=== PATIENT | female | born 1970 | race Caucasian/White ===

== ENCOUNTER 2020-07-27 06:04 | Inpatient (IN) | payer OTHER ==
[2020-07-27 09:12] LABS: BASO % 0.3 % (0-2.0); EOS % 0.1 % (0-4.5); HEMATOCRIT 42.6 % (32.4-45.2); HEMOGLOBIN 14.3 GM/dL (10.7-15.3); LYMPH % 27.7 % (8-40); MCH 29.9 pg (25.7-33.7); MCHC 33.6 g/dl (32.0-36.0); MEAN CELL VOLUME 89.2 fl (80-96); MEAN PLT VOLUME 8.9 fl (7.5-11.1); MONO % 10.6 % (3.8-10.2); NEUT % 61.3 % (42.8-82.8); PLATELET COUNT 150 K/MM3 (134-434); RBC 4.78 M/mm3 (3.60-5.2); RDW 12.9 % (11.6-15.6); WHITE BLOOD COUNT 3.5 K/mm3 (4.0-10.0)
[2020-07-27] MEDS ORDERED: DEXAMETHASONE SOD PHOSPHATE 10 MG/1 ML VIAL IVPUSH ONE (09:17)
[2020-07-27 09:20] LABS: INR 1.09 (0.83-1.09); PROTHROMBIN TIME (PATIENT) 13.1 SEC (9.7-13.0)
[2020-07-27 09:23] LABS: ACTIVATED PTT 30.1 SECONDS (25.2-36.5)
[2020-07-27 09:26] LABS: CHLORIDE 104 mmol/L (98-107); POTASSIUM 3.7 mmol/L (3.5-5.1); SODIUM 138 mmol/L (136-145)
[2020-07-27 09:28] LABS: ALBUMIN 3.8 g/dl (3.4-5.0); ANION GAP 6 MMOL/L (8-16); CALCIUM 8.7 mg/dL (8.5-10.1); CO2 28 mmol/L (21-32); GLUCOSE,RANDOM 147 mg/dL (74-106)
[2020-07-27 09:31] LABS: BILIRUBIN,DIRECT 0.2 mg/dL (0.0-0.2); SGOT/AST 45 U/L (15-37); SGPT/ALT 55 U/L (13-61)
[2020-07-27 09:32] LABS: CREATININE 0.6 mg/dL (0.55-1.3)
[2020-07-27 09:33] LABS: BILIRUBIN,TOTAL 0.7 mg/dL (0.2-1); TOT PROT 7.8 g/dl (6.4-8.2)
[2020-07-27 09:34] LABS: ALK PHOS 81 U/L (45-117)
[2020-07-27 09:36] LABS: LDH 297 U/L (84-246)
[2020-07-27] MEDS ORDERED: DEXAMETHASONE SOD PHOSPHATE 10 MG/1 ML VIAL ONE (10:15)
[2020-07-27] MEDS: ENOXAPARIN NA (PORCINE) 40 MG/0.4 ML DISP.SYRIN SQ SCH (12:45)
[2020-07-27] MEDS ORDERED: ENOXAPARIN NA (PORCINE) 40 MG/0.4 ML DISP.SYRIN SQ ONE (12:51)
[2020-07-27] MEDS: LACTATED RINGERS SOLUTION 1,000 ML/1,000 ML INFUS.BAG IV SCH (13:05)
[2020-07-27] MEDS ORDERED: PIPERACILLIN/TAZOB 3.375 GM 3.375 GM/50 ML BAG IVPB ONE (15:03)
[2020-07-27] MEDS: PIPERACILLIN/TAZOB 3.375 GM 3.375 GM in DEXTROSE 5%-WATER - 50 ML IVPB SCH ×2 (15:11→19:05)
[2020-07-27 18:26] LABS: PH,URINE 6.5 (5.0-8.0); URINE APPEARANCE CLEAR; URINE BILIRUBIN NEGATIVE (NEGATIVE); URINE COLOR DK YELLOW; URINE GLUCOSE (UA) NEGATIVE (NEGATIVE); URINE KETONE TRACE (NEGATIVE); URINE LEUK ESTERASE NEGATIVE (NEGATIVE); URINE NITRITE NEGATIVE (NEGATIVE); URINE PROTEIN NEGATIVE (NEGATIVE)
[2020-07-27] MEDS ORDERED: DEXTROSE 5%-WATER - 50 ML IVPB ONE (21:15)
[2020-07-27] MEDS ORDERED: PIPERACILLIN/TAZOBACTAM 3.375 GM VIAL IVPB ONE (21:15)
[2020-07-27] MEDS: ASCORBIC ACID 500 MG TABLET (FP) PO SCH (21:20)
[2020-07-27] MEDS: FAMOTIDINE 20 MG/50 ML IVPB 20 MG/50 ML MG IVPB SCH (21:21)
[2020-07-27] MEDS ORDERED: ZINC SULFATE 220 MG CAPSULE (FP) PO SCH (22:00)
[2020-07-28] MEDS ORDERED: ACETAMINOPHEN 1000 MG/100 ML VIAL (NON FORMULARY) IVPB PRN (00:29)
[2020-07-28] MEDS ORDERED: PIPERACILLIN/TAZOBACTAM 3.375 GM VIAL IVPB ONE ×2 (00:44→09:03)
[2020-07-28] MEDS ORDERED: DEXTROSE 5%-WATER - 50 ML IVPB ONE ×2 (00:44→09:03)
[2020-07-28] MEDS: CHOLECALCIFEROL (VIT D3) 1,000 UNIT (25 MCG) TABLET PO SCH ×2 (00:47→10:32)
[2020-07-28] MEDS: LACTATED RINGERS SOLUTION 1,000 ML/1,000 ML INFUS.BAG IV SCH ×2 (00:58→13:02)
[2020-07-28] MEDS: PIPERACILLIN/TAZOB 3.375 GM 3.375 GM in DEXTROSE 5%-WATER - 50 ML IVPB SCH ×2 (01:03→10:35)
[2020-07-28] MEDS ORDERED: PT OWN MED DRAWER 7, Y5N ONE (07:06)
[2020-07-28 08:53] LABS: BASO % 0.2 % (0-2.0); EOS % 0.5 % (0-4.5); HEMATOCRIT 40.6 % (32.4-45.2); HEMOGLOBIN 13.7 GM/dL (10.7-15.3); LYMPH % 35.5 % (8-40); MCH 30.1 pg (25.7-33.7); MCHC 33.7 g/dl (32.0-36.0); MEAN CELL VOLUME 89.3 fl (80-96); MEAN PLT VOLUME 8.4 fl (7.5-11.1); MONO % 12.4 % (3.8-10.2); NEUT % 51.4 % (42.8-82.8); PLATELET COUNT 162 K/MM3 (134-434); RBC 4.54 M/mm3 (3.60-5.2); RDW 12.7 % (11.6-15.6); WHITE BLOOD COUNT 3.4 K/mm3 (4.0-10.0)
[2020-07-28 08:58] LABS: INR 1.08 (0.83-1.09); PROTHROMBIN TIME (PATIENT) 13.2 SEC (9.7-13.0)
[2020-07-28 09:00] LABS: ACTIVATED PTT 29.7 SECONDS (25.2-36.5)
[2020-07-28 09:15] LABS: POTASSIUM 3.4 mmol/L (3.5-5.1)
[2020-07-28 09:19] LABS: CALCIUM 8.4 mg/dL (8.5-10.1)
[2020-07-28 09:20] LABS: ALBUMIN 3.3 g/dl (3.4-5.0); BLOOD UREA NITROGEN 7.6 mg/dL (7-18)
[2020-07-28 09:23] LABS: CREATININE 0.5 mg/dL (0.55-1.3); PHOSPHOROUS 3.4 mg/dL (2.5-4.9)
[2020-07-28 09:24] LABS: BILIRUBIN,TOTAL 0.8 mg/dL (0.2-1); TOT PROT 7.1 g/dl (6.4-8.2)
[2020-07-28] MEDS ORDERED: POTASSIUM CHLORIDE TABS 20 MEQ TABLET.ER (FP) PO ONE (09:30)
[2020-07-28] MEDS ORDERED: DEXAMETHASONE SOD PHOSPHATE 4 MG/1 ML VIAL IVPUSH SCH (10:00)
[2020-07-28] MEDS: ASCORBIC ACID 500 MG TABLET (FP) PO SCH ×2 (10:32→21:47)
[2020-07-28] MEDS: ZINC SULFATE 220 MG CAPSULE (FP) PO SCH (10:32)
[2020-07-28] MEDS: FAMOTIDINE 20 MG/50 ML IVPB 20 MG/50 ML MG IVPB SCH ×2 (10:36→21:47)
[2020-07-28] MEDS: ENOXAPARIN NA (PORCINE) 40 MG/0.4 ML DISP.SYRIN SQ SCH (10:36)
[2020-07-28] MEDS ORDERED: REMDESIVIR 200 MG in SODIUM CHLORIDE 210 ML IVPB ONE (17:00)
[2020-07-28] MEDS: DEXAMETHASONE 4 MG TABLET (FP) PO SCH (17:16)
[2020-07-28] MEDS: INSULIN SLIDING SCALE (NOVOLOG) 1 VIAL SQ SCH ×2 (17:33→21:53)
[2020-07-29] MEDS: INSULIN SLIDING SCALE (NOVOLOG) 1 VIAL SQ SCH ×4 (06:21→21:27)
[2020-07-29 07:58] LABS: BASO % 0.2 % (0-2.0); EOS % 0.6 % (0-4.5); HEMATOCRIT 39.9 % (32.4-45.2); HEMOGLOBIN 13.4 GM/dL (10.7-15.3); LYMPH % 37.2 % (8-40); MCH 30.1 pg (25.7-33.7); MCHC 33.5 g/dl (32.0-36.0); MEAN CELL VOLUME 89.8 fl (80-96); MEAN PLT VOLUME 8.2 fl (7.5-11.1); PLATELET COUNT 185 K/MM3 (134-434); RBC 4.44 M/mm3 (3.60-5.2); RDW 12.6 % (11.6-15.6)
[2020-07-29 08:10] LABS: POTASSIUM 3.4 mmol/L (3.5-5.1)
[2020-07-29 08:12] LABS: CALCIUM 8.4 mg/dL (8.5-10.1)
[2020-07-29 08:13] LABS: ALBUMIN 3.4 g/dl (3.4-5.0); BLOOD UREA NITROGEN 11.5 mg/dL (7-18)
[2020-07-29 08:16] LABS: CREATININE 0.6 mg/dL (0.55-1.3); PHOSPHOROUS 3.1 mg/dL (2.5-4.9)
[2020-07-29 08:17] LABS: BILIRUBIN,TOTAL 0.3 mg/dL (0.2-1)
[2020-07-29 08:18] LABS: TOT PROT 7.2 g/dl (6.4-8.2)
[2020-07-29 09:39] LABS: ERYTHROCYTE SEDIMENTATION RATE 74 mm/hr (0-30)
[2020-07-29] MEDS: VANCOMYCIN 1,250 MG in DEXTROSE 5%-WATER - 250 ML IVPB SCH ×2 (10:43→21:19)
[2020-07-29] MEDS: ZINC SULFATE 220 MG CAPSULE (FP) PO SCH (10:44)
[2020-07-29] MEDS: ASCORBIC ACID 500 MG TABLET (FP) PO SCH ×2 (10:44→21:17)
[2020-07-29] MEDS: CHOLECALCIFEROL (VIT D3) 1,000 UNIT (25 MCG) TABLET PO SCH (10:44)
[2020-07-29] MEDS: ENOXAPARIN NA (PORCINE) 40 MG/0.4 ML DISP.SYRIN SQ SCH (10:45)
[2020-07-29] MEDS: DEXAMETHASONE 4 MG TABLET (FP) PO SCH (10:45)
[2020-07-29] MEDS: FAMOTIDINE 20 MG/50 ML IVPB 20 MG/50 ML MG IVPB SCH ×2 (10:45→21:17)
[2020-07-29] MEDS: RIFAMPIN 300 MG CAPSULE PO SCH (10:46)
[2020-07-29] MEDS: REMDESIVIR 100 MG in SODIUM CHLORIDE 230 ML IVPB SCH (16:48)
[2020-07-29] MEDS ORDERED: PT OWN MED DRAWER 7, Y5N ONE (20:50)
[2020-07-30] MEDS: INSULIN SLIDING SCALE (NOVOLOG) 1 VIAL SQ SCH ×4 (06:26→21:23)
[2020-07-30] MEDS ORDERED: NYSTATIN 100,000 UNIT/GM TOPICAL CREAM 15 GM TUBE TP SCH (06:35)
[2020-07-30 08:24] LABS: POTASSIUM 3.5 mmol/L (3.5-5.1)
[2020-07-30 08:28] LABS: BASO % 0.1 % (0-2.0); EOS % 0.9 % (0-4.5); HEMATOCRIT 40.2 % (32.4-45.2); HEMOGLOBIN 13.8 GM/dL (10.7-15.3); MCH 30.4 pg (25.7-33.7); MCHC 34.2 g/dl (32.0-36.0); MEAN CELL VOLUME 88.8 fl (80-96); MEAN PLT VOLUME 8.5 fl (7.5-11.1); MONO % 13.2 % (3.8-10.2); NEUT % 53.8 % (42.8-82.8); PLATELET COUNT 213 K/MM3 (134-434); RBC 4.53 M/mm3 (3.60-5.2); RDW 12.4 % (11.6-15.6); WHITE BLOOD COUNT 4.2 K/mm3 (4.0-10.0)
[2020-07-30 08:33] LABS: CALCIUM 8.6 mg/dL (8.5-10.1)
[2020-07-30 08:34] LABS: ALBUMIN 3.3 g/dl (3.4-5.0); BLOOD UREA NITROGEN 9.4 mg/dL (7-18); MAGNESIUM 2.3 mg/dL (1.8-2.4)
[2020-07-30 08:36] LABS: CREATININE 0.5 mg/dL (0.55-1.3); PHOSPHOROUS 3.4 mg/dL (2.5-4.9)
[2020-07-30 08:38] LABS: BILIRUBIN,TOTAL 1.2 mg/dL (0.2-1); TOT PROT 7.2 g/dl (6.4-8.2)
[2020-07-30] MEDS ORDERED: PT OWN MED DRAWER 7, Y5N ONE ×2 (08:53→20:41)
[2020-07-30] MEDS: FAMOTIDINE 20 MG/50 ML IVPB 20 MG/50 ML MG IVPB SCH ×2 (09:34→21:16)
[2020-07-30] MEDS: CHOLECALCIFEROL (VIT D3) 1,000 UNIT (25 MCG) TABLET PO SCH (09:34)
[2020-07-30] MEDS: ASCORBIC ACID 500 MG TABLET (FP) PO SCH ×2 (09:34→21:16)
[2020-07-30] MEDS: DEXAMETHASONE 4 MG TABLET (FP) PO SCH (09:34)
[2020-07-30] MEDS: ZINC SULFATE 220 MG CAPSULE (FP) PO SCH (09:34)
[2020-07-30] MEDS: RIFAMPIN 300 MG CAPSULE PO SCH (09:35)
[2020-07-30] MEDS: KETOCONAZOLE 2% TOPICAL CREAM 15 GM TUBE TP SCH ×3 (09:35→21:24)
[2020-07-30] MEDS: ENOXAPARIN NA (PORCINE) 40 MG/0.4 ML DISP.SYRIN SQ SCH (09:35)
[2020-07-30] MEDS: VANCOMYCIN 1,250 MG in DEXTROSE 5%-WATER - 250 ML IVPB SCH (09:36)
[2020-07-30] MEDS ORDERED: INSULIN (NOVOLOG) ASPART 100 UNITS/ML 10ML VIAL ONE (11:19)
[2020-07-30 12:08] LABS: ERYTHROCYTE SEDIMENTATION RATE 74 mm/hr (0-30)
[2020-07-30] MEDS: REMDESIVIR 100 MG in SODIUM CHLORIDE 230 ML IVPB SCH (16:37)
[2020-07-31] MEDS: INSULIN SLIDING SCALE (NOVOLOG) 1 VIAL SQ SCH ×4 (06:46→22:05)
[2020-07-31 07:56] LABS: POTASSIUM 3.5 mmol/L (3.5-5.1)
[2020-07-31 08:07] LABS: BASO % 0.3 % (0-2.0); EOS % 1.8 % (0-4.5); HEMATOCRIT 37.7 % (32.4-45.2); LYMPH % 35.6 % (8-40); MCH 30.5 pg (25.7-33.7); MCHC 34.5 g/dl (32.0-36.0); MEAN CELL VOLUME 88.3 fl (80-96); MEAN PLT VOLUME 8.3 fl (7.5-11.1); NEUT % 47.3 % (42.8-82.8); PLATELET COUNT 234 K/MM3 (134-434); RBC 4.27 M/mm3 (3.60-5.2); RDW 12.2 % (11.6-15.6); WHITE BLOOD COUNT 4.1 K/mm3 (4.0-10.0)
[2020-07-31 08:10] LABS: ALBUMIN 3.2 g/dl (3.4-5.0); CALCIUM 8.4 mg/dL (8.5-10.1)
[2020-07-31 08:11] LABS: BLOOD UREA NITROGEN 10.9 mg/dL (7-18)
[2020-07-31 08:14] LABS: BILIRUBIN,TOTAL 0.4 mg/dL (0.2-1); CREATININE 0.5 mg/dL (0.55-1.3); PHOSPHOROUS 3.4 mg/dL (2.5-4.9); TOT PROT 6.9 g/dl (6.4-8.2)
[2020-07-31] MEDS ORDERED: PT OWN MED DRAWER 7, Y5N ONE ×2 (09:57→10:47)
[2020-07-31] MEDS: DEXAMETHASONE 4 MG TABLET (FP) PO SCH (10:15)
[2020-07-31] MEDS: CHOLECALCIFEROL (VIT D3) 1,000 UNIT (25 MCG) TABLET PO SCH (10:15)
[2020-07-31] MEDS: ASCORBIC ACID 500 MG TABLET (FP) PO SCH ×2 (10:15→22:06)
[2020-07-31] MEDS: ZINC SULFATE 220 MG CAPSULE (FP) PO SCH (10:15)
[2020-07-31] MEDS: ENOXAPARIN NA (PORCINE) 40 MG/0.4 ML DISP.SYRIN SQ SCH (10:15)
[2020-07-31] MEDS: FAMOTIDINE 20 MG/50 ML IVPB 20 MG/50 ML MG IVPB SCH ×2 (10:16→22:06)
[2020-07-31] MEDS: RIFAMPIN 300 MG CAPSULE PO SCH (10:16)
[2020-07-31] MEDS: KETOCONAZOLE 2% TOPICAL CREAM 15 GM TUBE TP SCH ×2 (10:16→22:06)
[2020-07-31 11:36] LABS: ERYTHROCYTE SEDIMENTATION RATE 77 mm/hr (0-30)
[2020-07-31] MEDS: REMDESIVIR 100 MG in SODIUM CHLORIDE 230 ML IVPB SCH (16:59)
[2020-08-01] MEDS: INSULIN SLIDING SCALE (NOVOLOG) 1 VIAL SQ SCH ×4 (06:09→21:47)
[2020-08-01 09:21] LABS: BASO % 0.3 % (0-2.0); HEMATOCRIT 39.6 % (32.4-45.2); HEMOGLOBIN 13.6 GM/dL (10.7-15.3); LYMPH % 37.9 % (8-40); MCH 30.4 pg (25.7-33.7); MCHC 34.3 g/dl (32.0-36.0); MEAN CELL VOLUME 88.7 fl (80-96); MEAN PLT VOLUME 8.3 fl (7.5-11.1); MONO % 12.6 % (3.8-10.2); NEUT % 47.2 % (42.8-82.8); PLATELET COUNT 268 K/MM3 (134-434); RBC 4.46 M/mm3 (3.60-5.2); RDW 12.4 % (11.6-15.6); WHITE BLOOD COUNT 4.2 K/mm3 (4.0-10.0)
[2020-08-01 09:33] LABS: POTASSIUM 3.6 mmol/L (3.5-5.1)
[2020-08-01 09:40] LABS: ALBUMIN 3.3 g/dl (3.4-5.0); BLOOD UREA NITROGEN 11.6 mg/dL (7-18)
[2020-08-01 09:42] LABS: BILIRUBIN,TOTAL 0.4 mg/dL (0.2-1); TOT PROT 7.6 g/dl (6.4-8.2)
[2020-08-01 09:43] LABS: CALCIUM 8.8 mg/dL (8.5-10.1); CREATININE 0.5 mg/dL (0.55-1.3)
[2020-08-01] MEDS ORDERED: PT OWN MED DRAWER 7, Y5N ONE (10:43)
[2020-08-01] MEDS: DEXAMETHASONE 4 MG TABLET (FP) PO SCH (10:48)
[2020-08-01] MEDS: RIFAMPIN 300 MG CAPSULE PO SCH (10:49)
[2020-08-01] MEDS: CHOLECALCIFEROL (VIT D3) 1,000 UNIT (25 MCG) TABLET PO SCH (10:49)
[2020-08-01] MEDS: FAMOTIDINE 20 MG/50 ML IVPB 20 MG/50 ML MG IVPB SCH ×2 (10:50→21:48)
[2020-08-01] MEDS: ENOXAPARIN NA (PORCINE) 40 MG/0.4 ML DISP.SYRIN SQ SCH (10:50)
[2020-08-01] MEDS: ASCORBIC ACID 500 MG TABLET (FP) PO SCH ×2 (10:51→21:48)
[2020-08-01] MEDS: KETOCONAZOLE 2% TOPICAL CREAM 15 GM TUBE TP SCH ×2 (10:51→21:48)
[2020-08-01] MEDS: ZINC SULFATE 220 MG CAPSULE (FP) PO SCH (10:51)
[2020-08-01] MEDS: REMDESIVIR 100 MG in SODIUM CHLORIDE 230 ML IVPB SCH (17:08)
[2020-08-02] MEDS: INSULIN SLIDING SCALE (NOVOLOG) 1 VIAL SQ SCH ×4 (06:02→22:49)
[2020-08-02 07:40] LABS: BASO % 0.3 % (0-2.0); EOS % 2.4 % (0-4.5); HEMATOCRIT 37.4 % (32.4-45.2); HEMOGLOBIN 12.8 GM/dL (10.7-15.3); MCH 30.2 pg (25.7-33.7); MCHC 34.4 g/dl (32.0-36.0); MEAN PLT VOLUME 8.1 fl (7.5-11.1); NEUT % 44.3 % (42.8-82.8); PLATELET COUNT 265 K/MM3 (134-434); RBC 4.25 M/mm3 (3.60-5.2); RDW 12.3 % (11.6-15.6); WHITE BLOOD COUNT 4.4 K/mm3 (4.0-10.0)
[2020-08-02 07:54] LABS: POTASSIUM 3.6 mmol/L (3.5-5.1)
[2020-08-02 07:59] LABS: ALBUMIN 3.1 g/dl (3.4-5.0); BLOOD UREA NITROGEN 10.1 mg/dL (7-18); CALCIUM 8.5 mg/dL (8.5-10.1)
[2020-08-02 08:02] LABS: CREATININE 0.5 mg/dL (0.55-1.3)
[2020-08-02 08:03] LABS: BILIRUBIN,TOTAL 0.8 mg/dL (0.2-1)
[2020-08-02] MEDS: FAMOTIDINE 20 MG/50 ML IVPB 20 MG/50 ML MG IVPB SCH ×2 (11:20→22:49)
[2020-08-02] MEDS: ENOXAPARIN NA (PORCINE) 40 MG/0.4 ML DISP.SYRIN SQ SCH (11:20)
[2020-08-02] MEDS: CHOLECALCIFEROL (VIT D3) 1,000 UNIT (25 MCG) TABLET PO SCH (11:21)
[2020-08-02] MEDS: ASCORBIC ACID 500 MG TABLET (FP) PO SCH ×2 (11:21→22:49)
[2020-08-02] MEDS: DEXAMETHASONE 4 MG TABLET (FP) PO SCH (11:21)
[2020-08-02] MEDS: KETOCONAZOLE 2% TOPICAL CREAM 15 GM TUBE TP SCH ×2 (11:37→22:49)
[2020-08-02] MEDS: ZINC SULFATE 220 MG CAPSULE (FP) PO SCH (11:38)
[2020-08-02] MEDS: RIFAMPIN 300 MG CAPSULE PO SCH (11:42)
[2020-08-02] MEDS ORDERED: PT OWN MED DRAWER 7, Y5N ONE (11:43)
[2020-08-03] MEDS: INSULIN SLIDING SCALE (NOVOLOG) 1 VIAL SQ SCH ×2 (06:01→10:55)
[2020-08-03 08:41] LABS: BASO % 0.4 % (0-2.0); EOS % 2.7 % (0-4.5); HEMATOCRIT 37.2 % (32.4-45.2); HEMOGLOBIN 12.9 GM/dL (10.7-15.3); LYMPH % 40.7 % (8-40); MCH 30.7 pg (25.7-33.7); MCHC 34.7 g/dl (32.0-36.0); MEAN CELL VOLUME 88.5 fl (80-96); MEAN PLT VOLUME 8.3 fl (7.5-11.1); MONO % 12.5 % (3.8-10.2); NEUT % 43.7 % (42.8-82.8); PLATELET COUNT 287 K/MM3 (134-434); RDW 12.2 % (11.6-15.6); WHITE BLOOD COUNT 4.9 K/mm3 (4.0-10.0)
[2020-08-03 09:00] LABS: POTASSIUM 3.7 mmol/L (3.5-5.1)
[2020-08-03 09:16] LABS: CALCIUM 8.9 mg/dL (8.5-10.1)
[2020-08-03 09:18] LABS: BLOOD UREA NITROGEN 9.7 mg/dL (7-18)
[2020-08-03 09:19] LABS: ALBUMIN 3.2 g/dl (3.4-5.0); MAGNESIUM 1.9 mg/dL (1.8-2.4)
[2020-08-03 09:21] LABS: CREATININE 0.5 mg/dL (0.55-1.3)
[2020-08-03 09:22] LABS: PHOSPHOROUS 3.9 mg/dL (2.5-4.9)
[2020-08-03 09:23] LABS: BILIRUBIN,TOTAL 0.5 mg/dL (0.2-1); TOT PROT 7.5 g/dl (6.4-8.2)
[2020-08-03 10:31] LABS: ERYTHROCYTE SEDIMENTATION RATE 88 mm/hr (0-30)
[2020-08-03] MEDS ORDERED: PT OWN MED DRAWER 7, Y5N ONE (10:35)
[2020-08-03] MEDS: ZINC SULFATE 220 MG CAPSULE (FP) PO SCH (10:38)
[2020-08-03] MEDS: ASCORBIC ACID 500 MG TABLET (FP) PO SCH (10:38)
[2020-08-03] MEDS: ENOXAPARIN NA (PORCINE) 40 MG/0.4 ML DISP.SYRIN SQ SCH (10:39)
[2020-08-03] MEDS: CHOLECALCIFEROL (VIT D3) 1,000 UNIT (25 MCG) TABLET PO SCH (10:39)
[2020-08-03] MEDS: DEXAMETHASONE 4 MG TABLET (FP) PO SCH (10:39)
[2020-08-03] MEDS: RIFAMPIN 300 MG CAPSULE PO SCH (10:40)
[2020-08-03] MEDS: FAMOTIDINE 20 MG/50 ML IVPB 20 MG/50 ML MG IVPB SCH (10:40)
[2020-08-03] MEDS: KETOCONAZOLE 2% TOPICAL CREAM 15 GM TUBE TP SCH (10:55)
[2020-08-03 14:49] VITALS: BMI 28.8
[2020-08-03 15:43] VITALS: BP 137/88; PULSE 90; TEMP 98.3
== END 2020-08-03 16:51 | disposition home or self-care (01) | DRG 137 ==
LOC: JER 06:04 → JERBED 09:50 → J8W 20:56
PROC: 8E0ZXY6 Isolation (ICD-10-PCS; 2020-07-27)
PROC: XW13325 Transfusion of Convalescent Plasma (Nonautologous) into Peripheral Vein, Percutaneous Approach, New Technology Group 5 (ICD-10-PCS; principal; 2020-07-28)
PROC: XW033E5 Introduction of Remdesivir Anti-infective into Peripheral Vein, Percutaneous Approach, New Technology Group 5 (ICD-10-PCS; 2020-07-28)
DX: U07.1 COVID-19 (principal); J12.89 Other viral pneumonia; J96.01 Acute respiratory failure with hypoxia; E11.9 Type 2 diabetes mellitus without complications; I10 Essential (primary) hypertension; E78.5 Hyperlipidemia, unspecified; Z22.7 Latent tuberculosis; R78.81 Bacteremia; R77.8 Other specified abnormalities of plasma proteins
CPT/HCPCS: 36415; 36430; 71045-TC-FY; 71250-TC; 80053; 81003; 82248; 82550; 82728; 82962; 83036; 83605; 83615; 83735; 84100; 84484; 84703; 85025; 85379; 85610; 85651; 85730; 86140; 86850; 86900; 86901; 87040; 87086; 87116; 87206; 93005; 93010; 94761; 97116-GP; 97161-GP; 99285-25; C9399; C9803; J0131; J1100; P9017; U0003